=== PATIENT | female | born 1970 | race Caucasian/White ===

== ENCOUNTER 2020-08-23 17:15 | Emergency (ER) | payer OTHER ==
[~2020-08-23] VITALS: Ht 170.2 cm; Wt 81.7 kg
[2020-08-23 17:20] VITALS: BP 107/68
== END 2020-08-23 21:50 | disposition home or self-care (01) ==
LOC: ER 17:15
DX: S80.211A Abrasion, right knee, initial encounter (principal); S52.121D Displaced fracture of head of right radius, subsequent encounter for closed fracture with routine healing; Z88.5 Allergy status to narcotic agent; Z91.012 Allergy to eggs; W01.0XXA Fall on same level from slipping, tripping and stumbling without subsequent striking against object, initial encounter; Y93.89 Activity, other specified; Y92.89 Other specified places as the place of occurrence of the external cause; Y99.8 Other external cause status